=== PATIENT | female | born 1995 | race Caucasian/White ===

== ENCOUNTER 2022-04-02 17:02 | Inpatient (IN) | payer OTHER, SELFPAY ==
[2022-04-02] VITALS (15 sets, daily range): BP systolic 94–145; BP diastolic 73–119; PULSE 68–89; TEMP 36.9–37.2; BMI 37.8
--- NOTE | 2022-04-02 17:02 | LDADM ---
This patient, Manjinder Duggan, was admitted to Labor/Delivery/Recovery 109 on 04/02/22 at 17:02. Plans for labor, pain management and were discussed with patient. Patient/family oriented to hospital policies and general routines including ID bracelet, bed and alarms, visiting hours, pain management, procedures, bathroom and other care routines, personal items, smoking policy, room service/diet and guest tray routines, infant security routines, and visiting hours. Patient/Family are encouraged to report perceived risks to care and to ask questions if they do not understand what they are told or what they should do. See OBIX for further documentation.
--- NOTE | 2022-04-02 17:28 | WPDANESEPP ---
Anes - Eval Pre Procedure Procedure: labor epidural Date/Time: 04/02/22 17:28 Surgeon: jamil Preop Diagnosis: pain during labor Pre Op Diagnosis: iol Patient Data Age: 26 Gender: F Height: Weight: Allergies Allergy/AdvReac Type Severity Reaction Status Date / Time doxycycline Allergy Intermediate Hives Verified 03/22/22 14:50 Patient hx anesthesia problems: none Family hx anesthesia problems: none Results Review: All pre-operative results and documents have been reviewed as part of the pre-operative evaluation. [facility] Family History Family History Grandparent Congestive heart failure Social History Social History Substance use: never Spiritual care concerns: No Exam Day of Procedure 04/02/22 17:28
[2022-04-02 18:28] LABS: Basophils Percent Auto 0.3 % (0.2-1.2); Eosinophils Absolute Auto 0.1 K/mm3 (0-0.3); Eosinophils Percent Auto 0.7 % (0-4.4); Hematocrit 35.3 % (37.0-47.0); Hemoglobin 11.6 g/dL (12.0-15.0); Immature Granulocyte Absolute 0.06 K/mm3 (0.00-0.031); Immature Granulocyte Percent A 0.6 % (0-0.5); Lymphocytes Absolute Auto 2.24 K/mm3 (0.9-3.2); Lymphocytes Percent Auto 21.8 % (18.3-44.2); Mean Corpuscular HGB Conc 32.9 g/dl (32-36); Mean Corpuscular Volume 85.1 fl (80-100); Mean Platelet Volume 9.2 fl (7.4-10.4); Monocytes Absolute Auto 0.8 K/mm3 (0.1-0.6); Monocytes Percent Auto 7.3 % (2.6-8.5); Neutrophils Absolute Auto 7.1 K/mm3 (1.3-6.7); Neutrophils Percent Auto 69.3 % (45.5-73.1); Platelet Count Result 318 k/mm3 (150-375); Red Blood Count 4.15 M/mm3 (4.2-5.4); Red Cell Distribution Width 13.6 % (11.5-14.5); White Blood Count 10.3 K/mm3 (4.5-10.0)
[2022-04-02] MEDS: LACTATED RINGERS 1,000 ML 125 ML IV CONT (18:46)
[2022-04-02] MEDS: AMPICILLIN 2 GM/NS 100 ML 2 GM/100 ML BAG IVPB (18:47)
[2022-04-02] MEDS: miSOPROStol 25 MCG TABLET VAGINAL (19:02)
[2022-04-02] MEDS: AMPICILLIN 1 GM/NS 50 ML 1 GM/50 ML BAG IVPB (22:31)
[2022-04-02] MEDS: OXYTOCIN 30 UNITS/NS 500 ML 30 UNITS/500 ML BAG IV CONT (23:47)
[2022-04-03] VITALS (88 sets, daily range): BP systolic 94–142; BP diastolic 34–93; PULSE 55–159; RESP 16–18; TEMP 36.4–37.1; O2SAT 98–100
[2022-04-03] MEDS: ONDANSETRON INJ 4 MG/2 ML VIAL IV PUSH ×2 (01:55→10:25)
[2022-04-03] MEDS: AMPICILLIN 1 GM/NS 50 ML 1 GM/50 ML BAG IVPB ×3 (02:17→11:02)
[2022-04-03] MEDS: LACTATED RINGERS 1,000 ML 125 ML IV CONT ×2 (07:14→09:15)
--- NOTE | 2022-04-03 08:40 | WPDANESEPP ---
Anes - Eval Pre Procedure Procedure: Labor Pain Management Date/Time: 04/03/22 08:40 Surgeon: José Miguel Preop Diagnosis: Pain during labor Pre Op Diagnosis: iol Patient Data Age: 26 Gender: F Height: 1.63 m Weight: 100 kg Last Vital Signs Temp 97.9 F 04/03/22 07:00 Pulse 68 04/03/22 08:30 Resp 17 04/03/22 01:00 BP 132/85 04/03/22 08:30 Allergies Allergy/AdvReac Type Severity Reaction Status Date / Time doxycycline Allergy Intermediate Hives Verified 03/22/22 14:50 Laboratory Tests 04/02/22 04/02/22 04/02/22 18:23 18:23 18:23 WBC 10.3 K/mm3 H K/mm3 (4.5-10.0) RBC 4.15 M/mm3 L M/mm3 (4.2-5.4) Hgb 11.6 g/dL L g/dL (12.0-15.0) Hct 35.3 % L % (37.0-47.0) MCV 85.1 fl fl (80-100) MCH 28.0 pg pg (26-34) MCHC 32.9 g/dl g/dl (32-36) RDW 13.6 % % (11.5-14.5) Plt Count 318 k/mm3 k/mm3 (150-375) MPV 9.2 fl fl (7.4-10.4) Immature Gran % (Auto) 0.6 % H % (0-0.5) Neut % (Auto) 69.3 % % (45.5-73.1) Lymph % (Auto) 21.8 % % (18.3-44.2) [place] % (Auto) 7.3 % % (2.6-8.5) Eos % (Auto) 0.7 % % (0-4.4) Baso % (Auto) 0.3 % % (0.2-1.2) Lymph # (Auto) 2.24 K/mm3 K/mm3 (0.9-3.2) [place] # (Auto) 0.8 K/mm3 H K/mm3 (0.1-0.6) Eos # (Auto) 0.1 K/mm3 K/mm3 (0-0.3) Baso # (Auto) 0.0 K/mm3 K/mm3 (0.0-0.1) Abs Immat Gran (auto) 0.06 K/mm3 H K/mm3 (0.00-0.031) Absolute Neuts (auto) 7.1 K/mm3 H K/mm3 (1.3-6.7) Absolute Nucleated RBC 0.0 K/mm3 K/mm3 (0.0-0.012) Nucleated RBC % 0.0 % % (0.0-0.2) RPR Pending Blood Type A Positive Antibody Screen Negative Patient hx anesthesia problems: none Family hx anesthesia problems: none Results Review: All pre-operative results and documents have been reviewed as part of the pre-operative evaluation. [facility] Family History Family History Grandparent Congestive heart failure Social History Social History Smoking status: Never smoker Substance use: never Spiritual care concerns: No Exam Day of Procedure 04/03/22 08:40
[2022-04-03 09:17] LABS: Rapid Plasma Reagin Non-Reactive (NonReactive)
--- NOTE | 2022-04-03 10:11 | PM.IMHP ---
H&P: HPI History of Present Illness Date/Time: 04/03/22 10:11 Chief Complaint: induction of labor Narrative: Manjinder is a 26yo at 39.1 here for elective IOL. First delivered a LGA 35 weeker. This complicated by GBS pos, depression, COVID in , and a pelvic kidney. She received one cytotec and is now on pitocin. Review of Systems Review of Systems: All systems reviewed & are unremarkable except as noted in HPI and below PMFSH Family History Family History Grandparent Congestive heart failure Social History Social History Smoking status: Never smoker Substance use: never Spiritual care concerns: No Meds Home Medications and Allergies Home Medications Medication Instructions Recorded Confirmed Type Daily 40 mg PO DAILY 04/03/22 04/03/22 History citalopram 40 mg tablet 40 mg PO DAILY 04/03/22 04/03/22 History Allergies Allergy/AdvReac Type Severity Reaction Status Date / Time doxycycline Allergy Intermediate Hives Verified 03/22/22 14:50 Vital Signs Vital Signs - 24 hr 04/02/22 17:31 04/02/22 17:46 04/02/22 18:00 Temperature Pulse Rate 73 89 87 Respiratory Rate Blood Pressure 136/74 94/74 L 130/76 Pulse Oximetry 04/02/22 18:15 04/02/22 18:31 04/02/22 18:45 Temperature Pulse Rate 88 82 87 Respiratory Rate Blood Pressure 123/76 120/82 133/79 Pulse Oximetry 04/02/22 18:09 04/02/22 20:13 04/02/22 21:00 Temperature 98.9 F Pulse Rate 83 70 Respiratory Rate Blood Pressure 135/83 131/73 Pulse Oximetry 04/02/22 20:00 04/02/22 22:00 04/02/22 22:33 Temperature 98.6 F 98.4 F Pulse Rate 68 Respiratory Rate Blood Pressure 145/119 H 127/81 Pulse Oximetry 04/02/22 22:34 04/02/22 23:00 04/02/22 23:50 Temperature 98.7 F Pulse Rate 69 76 Respiratory Rate Blood Pressure 141/98 H 130/77 Pulse Oximetry 04/03/22 00:00 04/03/22 00:15 04/03/22 00:30 Temperature Pulse Rate 66 75 74 Respiratory Rate Blood Pressure 124/75 118/84 124/88 Pulse Oximetry 04/03/22 00:45 04/03/22 01:01 04/03/22 01:15 Temperature Pulse Rate 71 74 74 Respiratory Rate Blood Pressure 129/86 118/82 124/85 Pulse Oximetry 04/03/22 01:30 04/03/22 01:45 04/03/22 02:00 Temperature Pulse Rate 72 67 72 Respiratory Rate Blood Pressure 126/84 126/77 126/88 Pulse Oximetry 04/03/22 01:00 04/03/22 02:16 04/03/22 02:31 Temperature 98.4 F Pulse Rate 68 87 Respiratory Rate 17 Blood Pressure 113/70 107/57 L Pulse Oximetry 04/03/22 02:45 04/03/22 03:00 04/03/22 03:15 Temperature Pulse Rate 70 63 62 Respiratory Rate Blood Pressure 121/80 108/65 109/62 Pulse Oximetry 04/03/22 03:31 04/03/22 03:30 04/03/22 03:45 Temperature 98.6 F Pulse Rate 63 61 Respiratory Rate Blood Pressure 109/57 L 106/64 Pulse Oximetry 04/03/22 04:00 04/03/22 04:15 04/03/22 07:25 Temperature 98.7 F Pulse Rate 73 66 61 Respiratory Rate Blood Pressure 116/62 111/63 129/83 Pulse Oximetry 04/03/22 07:30 04/03/22 07:45 04/03/22 08:00 Temperature Pulse Rate 67 66 74 Respiratory Rate Blood Pressure 121/83 124/79 120/78 Pulse Oximetry 04/03/22 07:00 04/03/22 08:15 04/03/22 08:30 Temperature 97.9 F Pulse Rate 79 68 Respiratory Rate Blood Pressure 123/82 132/85 Pulse Oximetry 04/03/22 08:46 04/03/22 08:49 04/03/22 08:54 Temperature Pulse Rate 65 Respiratory Rate Blood Pressure 123/67 Pulse Oximetry 100 100 04/03/22 08:55 04/03/22 09:00 04/03/22 09:05 Temperature Pulse Rate Respiratory Rate Blood Pressure Pulse Oximetry 100 100 100 04/03/22 09:06 04/03/22 09:07 04/03/22 09:09 Temperature Pulse Rate 65 73 73 Respiratory Rate Blood Pressure 133/92 H 14
--- NOTE | 2022-04-03 14:26 | PM.OBPRVD ---
OB - Delivery Note Procedure Delivery date: 04/03/22 Procedure: Events: Elective Induction of Labor Induction method: AROM, Per Misoprostol Protocol and Per Pitocin Protocol Delivery monitor: External FHT and Internal Uterine Route of delivery: Laceration Description: Perineal - 2nd Degree Delivery repair: vicryl Quantitative Blood Loss (ml): 250 Anesthesia type: Epidural Disposition: Floor Narrative: With adequate expulsive efforts by the mother, the baby's head was delivered OA. The baby's anterior shoulder was delivered under the pubic symphysis without difficulty. The posterior shoulder and the rest of the baby delivered without difficulty. The was placed on the mothers chest and suctioned and stimulated. The cord was clamped and cut after 30 seconds. Mother and baby both stable. [place] Baby Date of : 04/03/22 Time of : 14:04 Weeks of gestation at delivery: 39 gender: Female Weight (pounds): 7 Weight (ounces): 10 presentation: vertex Placenta delivery description: Spontaneous Cord Vessel Description: 3 Vessels and Delayed Cord Clamping score one minute: 8 score five minutes: 9
[2022-04-03] MEDS: OXYTOCIN 30 UNITS/NS 500 ML 30 UNITS/500 ML BAG 125 UNITS IV CONT (14:34)
[2022-04-03] MEDS: CITALOPRAM HYDROBROMIDE 20 MG TABLET 40 MG PO (20:43)
[2022-04-03] MEDS: IBUPROFEN 600 MG TABLET PO (20:43)
[2022-04-04 04:20] VITALS: BP 129/77; PULSE 79; RESP 16; TEMP 36.7
[2022-04-04] MEDS: IBUPROFEN 600 MG TABLET PO ×2 (04:23→10:29)
[2022-04-04 04:45] LABS: Hematocrit 32.4 % (37.0-47.0); Hemoglobin 10.5 g/dL (12.0-15.0)
[2022-04-04 07:50] VITALS: BP 119/84; PULSE 71; RESP 16; TEMP 36.6; O2SAT 99
[2022-04-04 08:30] VITALS: PULSE 71; RESP 16; O2SAT 99
--- NOTE | 2022-04-04 09:28 | PC.NURSE ---
[id number] Introductions were made, then consulted with patient to assess needs related to . Mother led the conversation with her?plans to feed?her infant and the?experience so far. Mother states she has tenderness with but denies pain. At times there is a clicking noise that goes away after adjusting the latch. Resources provided for inpatient and outpatient services using a resource guide and mom/baby guide. Mother voiced understanding of information and the offer for assistance for questions, concerns, or if there is clicking, pain, or difficulty getting infant awake for . Primary RN present during introduction.
[2022-04-04] MEDS: DOCUSATE SODIUM 100 MG CAPSULE PO (10:28)
[2022-04-04] MEDS: MULTIVIT/MIN/PREN/FOL AC/IRON TABLET 1 TAB PO (10:29)
[2022-04-04 11:52] VITALS: BP 122/74; PULSE 67; RESP 16; TEMP 36.6; O2SAT 100
--- NOTE | 2022-04-04 12:17 | PM.OBPNVD ---
OB - PN: Subj Subjective Date/time seen: 04/04/22 12:17 Patient comments: no complaints and pain well controlled baby status: nursing well [place] feeding status: exclusively breast feeding Narrative: would like DC home OB - PN: Obj Data Labs CBC & Chem 7: 04/04/22 04:28 Labs: Laboratory Results - last 24 hr 04/04/22 04:28 Hgb 10.5 L Hct 32.4 L OB - PN A/P Plan day: 1 Plan: routine care and discharge home Time Spent With Patient Time: Total time spent is greater than 50% in coordination of care (as documented) at patient's floor/unit and/or counseling patient: Time with patient: less than 15 minutes Exam Narrative: NAD abdomen soft, nontender, fundus firm below the umbilicus Extremities nontender, 1+ edema
--- NOTE | 2022-04-04 12:21 | PM.DS ---
DS: Admitting Diagnosis Discharge Date 04/04/22 Admitting Diagnosis term IUP DS: Discharge Diagnosis Discharge Diagnosis (1) , delivered: Code(s): O80 - Encounter for full-term uncomplicated delivery Status: Acute DS: Summary Hospital Course Hospital Course: Manjinder was admitted for elective induction of labor at 39.1. She proceeded to have an uncomplicated vaginal delivery and course and was discharged home on day 1. Status at Discharge Functional status at discharge: independent ambulation Time Spent with Patient Time attestation: Total time spent providing and/or coordinating discharge services: Exam Narrative: NAD abdomen soft, appropriately tender Ext non tender, 1+ edema DS: Data Data Completed and Pending Labs on day of discharge: Labs from last 24 hours 04/04/22 04:28 Hgb 10.5 L Hct 32.4 L Discharge Plan Discharge Attending physician on discharge: Angy Valdez Discharging Clinician: Angy Valdez Anticipated Discharge Date/Time: 04/04/22 14:00 Patient Disposition: Home, Self-Care Activity: pelvic rest Diet: regular Patient Instructions: Antibiotic Form Stand Alone Forms: General Discharge Information Follow-up/Referrals: Angy Valdez MD [Physician] - 4 Weeks Discharge Medications: Continued Daily 40 mg PO DAILY citalopram 40 mg Tablet 40 mg PO DAILY Date of admission: 04/02/22 17:02 Primary Care Provider: PHYSICIAN,SALES SUPPORT ADMINISTRATOR Admitting Provider: Angy Valdez Attending physician on admission: Angy Valdez Condition: Stable
[2022-04-04 12:30] VITALS: PULSE 67; RESP 16; O2SAT 100
--- NOTE | 2022-04-04 14:17 | WPDANLDPN2 ---
Anes-Prog Note L&D Date/Time: 04/04/22 14:17 Neuro status: Neuro function grossly intact. Vital Signs: Last Vital Signs Temp 36.6 C 04/04/22 11:52 Pulse 67 04/04/22 12:30 Resp 16 04/04/22 12:30 BP 122/74 04/04/22 11:52 Pulse Ox 100 04/04/22 12:30 O2 Del Method Room Air 04/04/22 12:30 Pain score (VAS): 0 I/O: Intake & Output 04/03/22 04/04/22 04/04/22 23:59 07:59 15:59 Intake Total 500 740 Output Total 213 Balance 287 740 Patient feedback: Patient satisfied with anesthetic care.
[2022-04-05 10:19] VITALS: BP 134/76; PULSE 69; RESP 20; TEMP 36.7; O2SAT 99
== END 2022-04-04 15:20 | disposition home or self-care (01) | DRG 807 ==
LOC: ANHLDR 17:06 → ANHOB2 04-03 17:18
PROVIDERS: Admitting Provider Obstetrics & Gynecology; Visit Provider Obstetrics & Gynecology
DX: O36.63X0 Maternal care for excessive fetal growth, third trimester, not applicable or unspecified (principal); Z37.0 Single live birth; O99.824 Streptococcus B carrier state complicating childbirth; O99.344 Other mental disorders complicating childbirth; F32.A Depression, unspecified; O35.8XX0 Maternal care for other (suspected) fetal abnormality and damage, not applicable or unspecified; O70.1 Second degree perineal laceration during delivery; O76 Abnormality in fetal heart rate and rhythm complicating labor and delivery; Z3A.39 39 weeks gestation of pregnancy; Z86.16 Personal history of COVID-19
CPT/HCPCS: 36415; 85014; 85018; 85025; 86592; 86850; 86900; 86901; A9270; J0290; J2405; J2590; J2795; J7120